=== PATIENT | male | born 1980 | race African-American/Black ===

== ENCOUNTER 2024-11-16 17:16 | Emergency (ER) | payer OTHER, SELFPAY ==
--- NOTE | ~2024-11-16 | XR_ITS ---
EXAMINATION: XR chest 2V Exam Date/Time: 11/16/2024 18:31 CDT HISTORY: rule out rib fx Comparison: None. RESULT: Lines, tubes, and devices: None. Lungs and pleura: Clear. Cardiomediastinal silhouette: Stable. Other: No acute osseous or upper abdominal finding. IMPRESSION: No acute cardiopulmonary process. No acute displaced rib fractures detected, however the inferior ribs are not routinely included in est radiographs. If clinical suspicion of rib injury is high or location is inferior, consider dedicated radiographs o f the ribs, preferably with indication of the specific site of concern. Reviewed, dictated and finalized at [facility] IMPRESSION: No acute cardiopulmonary process. No acute displaced rib fractures detected, however the inferior ribs are not ro utinely included in chest radiographs. If clinical suspicion of rib injury is high or location is inferior, consider d edicated radiographs of the ribs, preferably with indication of the specific si te of concern.
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
[2024-11-16 17:22] VITALS: BP 165/105; PULSE 79; RESP 18; TEMP 36.6; O2SAT 99
[2024-11-16 17:44] VITALS: BP 160/112; PULSE 80; RESP 20; O2SAT 94
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
--- OUTSIDE RECORDS SUMMARY | 2024-11-16 18:15 | XMS_ITS | Encounter Summary ---
Author Organization [facility] Healthcare Address [address] [place] [address] Care Team Providers Care Relationship Management Lead Name Role Phone Omari Marcos MD Primary Care Provider [phone] Pascual Montgomery MD Unavailable [phone] Encounter Details Date Type Department Care Team (Late st Contact Info) Description 03/11/2024 Orders Only [facility] [address] [place] [id number] Omari Marcos MD [facility] [address] [address] Social History Tobacco Use Types Packs/Day Years Used Date Smoking Tobacco: Never Smokeless Tobacco: Never Alcohol Use Standard Drinks/Week Comments Yes 0 [...] on file Legal 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 Gender Identity Not on file Sexual Orientation Not on file documented as of this encounter Plan of Treatment Not on file documented as of this encounter Procedures Procedure Name Priority Date/Time Associated Diagnosis Comments GI - RESULT 03/11/2024 documented in this encounter Results * GI - RESULT (03/11/2024) Anatomical Region Laterality Modality Other Omari Marcos MD Final Result documented in this encounter Visit Diagnoses Not on filedocumented in this encounter Care Teams Relationship Management Lead Relationship Specialty Start Date End Date Omari Marcos MD PCP - General Family Medicine 10/21/19 Pascual Montgomery MD [address] [address] 10/21/19 documented as of this encounter
--- OUTSIDE RECORDS SUMMARY | 2024-11-16 18:15 | XMS_ITS | Clinical Summary ---
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 Gender Identity Not on file Sexual Orientation Not on file Plan of Treatment Health Maintenance Due Date Last Done Comments Hepatitis C Virus (HCV) Screening 1978 TdaP Immunization 1978 Hepatitis B Immunization (1 of 3 - 19+ 3-dose series) 1997 Cologuard 2023 Colonoscopy 2023 Colorectal Cancer Screening 2023 Immunochemical Fecal Occult Blood 2023 SARS-COV-2 Immunization ( season) 2023 Influenza Immunization (#1) 2024 Respiratory Syncytial Virus (RSV) Immunization (Adult) (1 - 1-dose 75+ series) 2053 Human Papillomavirus (HPV) Immunization Aged Out No longer eligible b ased on patient's age to complete this topic Meningococcal Immunization (ACWY) Aged Out No longer eligible based on patient's age to complete this topic Pneumococcal Immunization Combined Aged Out No longer eligible based on patient's age to complete this topic Rotavirus Immunization Aged Out No lo nger eligible based on patient's age to complete this topic
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
--- OUTSIDE RECORDS SUMMARY | 2024-11-16 18:15 | XMS_ITS | Continuity of Care Document ---
Author Organization [facility] Address [address] [place] [address] Phone Care Team Providers Care Cable Ferryboat Operator Name Role Phone Jones Anaya MD, MD Unavailable Unavailable Procedures Procedure Date Medical Record Copy Medical Record Copy Per Page Affidavit Independent Medical Examination UZIEL Advance Directives Directive Yes / No Effective Date File Name No Information Encounters Encounter Description Practice Location Reason(s) For Visit Diagnoses Date Provider Providers Copied on Encounter [facility], [address], [id number], tel:[phone] [facility] No Information 2 Héctor Goldman. [address] [facility], [facility] [address], [place], [id number], [place]. tel:[phone] [facility], [address] [place] [address], [id number], [place] tel:[phone] [facility] No Information 2 Administrative Provider. [address] [place] [address], [address], [id number], [place]. tel:[phone] Independent Medical Examination UZIEL [facility], [address] [place] [address], [id number], tel:[phone] [facility] Carpal Tunnel Syndrome Dec 3-201 2 Camilo Ramirez. [address] [facility], [address], [place], [place], [id number], [place]. tel:[phone] Family History Family Member Type Diagnosis Age At Onset No Information Immunizations Vaccine Date Status Comments Flu (split) (3 yrs or older) administered Source: New Immunization Record Payers Payer name Insurance type Covered green party ID Authoriza tion(s) No Information Social History Type Description Quantity Date Captured Comments Sex Male Smoking Status No Information Chief Complaint And Reason For Visit No Information Reason For Referral Reason For Referral No Information History Of Present Illness Encounter Date Complaint History Of Prese nt Illness No Information Functional Status Date Functional Assessmen t No Information Instructions Date Instruction Additional Infor mation No Information Assessments Type Assessment Date No Information Patient Care Teams Name Effective Dates (start - stop) Status Members No Information
--- OUTSIDE RECORDS SUMMARY | 2024-11-16 18:15 | XMS_ITS | Referral Summary ---
Author Organization [facility] Address [address] [place] [address] Care Team Providers Care Baby Registry Sales Consultant Name Role Phone Omari Marcos MD Primary Care Provider [phone] Pascual Montgomery MD Unavailable [phone] Encounters Date Type Department Care Team Description 11/16/2024 Nurse Triage [facility] Family Medicine at [address] [place] [address] Omari Marcos MD from Last 3 Months Allergies No known active allergies Medications cyclobenzaprin [...] 06/18/2022 Injury of collateral ligament of wrist Nervous indigestion 06/18/2022 Pain of finger of [...] 05/30/2021 Assessment & Plan (05/30/2021 7:56 AM VICE PRESIDENT LENDING): Acute Likely self-limiting with that of prescription medication for anti-inflammatory and muscle relaxant. If problem persists would consider imaging or physical therapy. Left carpal tunnel syndrome 05/30/2021 Assessment & Plan (05/30/2021 7:58 AM VICE PRESIDENT LENDING): Lsie-zp-hyxzantd chronic carpal tunnel at left wrist. Previous [...] Condition: New Acute Problem Treatment: New Medication: [place]. 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 Increase omeprazole at prescription dosage [...] agreeable Assessment & Plan (05/30/2021 7:56 AM VICE PRESIDENT LENDING): Patient no longer uses CPAP. Patient uses some sort of a mouth device for treating sleep apnea, recommended by dentist. Immunizations Immunization Administration Dates Next Due DTP 07/26/1993,06/19/1993,02/07/1984 DTaP 5 Pertussis 10/25/2017 Influenza, Unspecified 03/04/2024(Deferr ed: Patient decision),01/31/2023,01/31/2022(Deferred: Patient Refused),01/19/2022(Deferred: Patient decision) MMR 07/26/1993,06/19/1993 OPV 08/01/1993,06/19/1993,02/07/1984 Td, Unspecified 04/21/2017 Social History Tobacco Use Types Packs/Day Years [...] on file Legal Sex Male 11:11 PM VICE PRESIDENT LENDING Gender Identity Not on file Sexual Orientation Not on file Last Filed Vital Signs Vital Sign Reading Time Taken Comments Blood Pressure 137/89 03/04/2024 8:55 AM VICE PRESIDENT LENDING Pulse 89 03/04/2024 8:55 AM VICE PRESIDENT LENDING Temperature 36.3 C (97.3 F) 03/04/2024 8:55 AM VICE PRESIDENT LENDING Respiratory Rate 18 03/04/2024 8:55 AM VICE PRESIDENT LENDING Oxygen Saturation 98% 03/04/2024 8:55 AM VICE PRESIDENT LENDING Inhaled Oxygen Concentration - - Weight 88.6 kg (195 lb 6.4 oz) 03/04/2024 8:55 A M VICE PRESIDENT LENDING Height 172.7 cm (5' 8) 03/04/2024 8:55 AM VICE PRESIDENT LENDING Body Mass Index 29.71 03/04/2024 8:55 AM VICE PRESIDENT LENDING Plan of Treatment Not on file Procedures Procedure Name Priority Date/Time Associated Diagnosis Comments PSA SCREEN Routine 05/22/2024 10:04 AM VICE PRESIDENT LENDING Screening for prostate cancer COLONOSCOPY Routine 03/11/2024 from Last 3 Months or Most Recently Relevant to Health Maintenance Results * PSA screen (05/22/2024 10:04 AM VICE PRESIDENT LENDING) PSA-Total 1.20 ng/mL Comment: Interpretive Data AGE [...] revised 19. Blood 05/22/2024 10:0 4 AM VICE PRESIDENT LENDING 05/22/2024 10:51 AM VICE PRESIDENT LENDING Omari Marcos MD LAB BLOOD ORDERABLES Final Resul t [facility] [address] [facility] [place] [address] * Colonoscopy (03/11/2024) Anatomical Region Laterality Modality Other Historical Provider ENDOSCOPY PROCEDURES Treva l Result from Last 3 Months or Most Recently Relevant to Health Maintenance Insurance Down OOS Down [facility] Address: [address] [place] [address] Care Teams Baby Registry Sales Consultant Relationship Specialty Start Date End Date Omari Marcos MD PCP - General Family Medicine 10/21/19 Pascual Montgomery MD [address] [facility] [address] [place] [address] 10/21/19
[2024-11-16 19:33] LABS: Hematocrit 37.3 % (42.0-52.0); Hemoglobin 12.8 g/dL (14.0-18.0); Immature Granulocyte Percent A 0.2 % (0-0.5); Lymphocytes Absolute Auto 2.63 K/mm3 (0.9-3.2); Mean Corpuscular HGB Conc 34.3 g/dl (32-36); Mean Corpuscular Hemoglobin 30.1 pg (26-34); Mean Corpuscular Volume 87.8 fl (80-100); Nucleated Red Blood Cells Absolute Auto 0.000 K/mm3 (0.0-0.012); Nucleated Red Blood Cells Perc 0.0 % (0.0-0.2); Platelet Count Result 282 k/mm3 (150-375); Red Blood Count 4.25 M/mm3 (4.6-6.20); White Blood Count 5.7 K/mm3 (4.5-10.0)
[2024-11-16 19:42] LABS: Alanine Aminotransferase 23 U/L (6-50); Albumin Level 4.4 g/dL (3.5-5.1); Alkaline Phosphatase 73 U/L (38-126); Anion Gap 9 mmol/L (4-12); Aspartate Amino Transferase 32 U/L (17-59); Bilirubin,Total 0.4 mg/dL (0.2-1.3); Blood Urea Nitrogen 13 mg/dL (9-20); Calcium 9.1 mg/dL (8.4-10.2); Carbon Dioxide 22 mmol/L (22-30); Chloride 108 mmol/L (98-107); Estimated CRCL calculation 76 ml/min; Estimated Glomerular Filt Rate > 60; Glucose 82 mg/dL (65-110); Potassium 3.7 mmol/L (3.4-5.0); Sodium 139 mmol/L (137-145); Total Protein 8.0 g/dL (6.3-8.2)
[2024-11-16 19:56] VITALS: BP 155/111; PULSE 73; RESP 16; O2SAT 98
[2024-11-16 20:28] LABS: Add Urine Microscopic? YES; Appearance Urine Clear (Clear); Glucose Urine UA Negative (Negative); Leukocyte Esterase Ur Negative LEU/UL (Negative); Nitrate Urine Negative (Negative); Non Pathogenic Casts 0-2; Specific Grav Ur 1.025 (1.001-1.035)
[2024-11-16 20:34] LABS: Lipase 57 U/L (23-300)
[2024-11-16] MEDS: KETOROLAC 15 MG/ML VIAL (*BKC) IV PUSH (20:59)
[2024-11-16 21:21] LABS: Total Protein Urine Random 14 mg/dL
[2024-11-16 21:27] VITALS: BP 144/99; PULSE 81; RESP 16; TEMP 36.9; O2SAT 98
[2024-11-16 21:45] LABS: Immunoglobulin A 190 mg/dL (70-400); Immunoglobulin G 1652 mg/dL (700-1600); Immunoglobulin M 99 mg/dL (40-230)
[2024-11-16 22:08] LABS: Prostate Specific Antigen 1.0 ng/mL (< OR = 4.0)
[2024-11-18 15:09] LABS: Albumin 4.1 g/dL (2.9-4.4); Alpha-1-Globulin 0.1 g/dL (0.0-0.4); Alpha-2-Globulin 0.4 g/dL (0.4-1.0); Gamma Globulin 1.5 g/dL (0.4-1.8)
== END 2024-11-16 21:42 | disposition home or self-care (01) ==
PROVIDERS: Emergency Provider Registered Nurse
DX: S06.0X0A Concussion without loss of consciousness, initial encounter (principal); S13.4XXA Sprain of ligaments of cervical spine, initial encounter; S29.012A Strain of muscle and tendon of back wall of thorax, initial encounter; S39.012A Strain of muscle, fascia and tendon of lower back, initial encounter; R93.89 Abnormal findings on diagnostic imaging of other specified body structures; V43.52XA Car driver injured in collision with other type car in traffic accident, initial encounter
CPT/HCPCS: 36415; 70450; 71046; 72125; 72128; 72131; 80053; 81001; 81050; 82784; 83690; 84153; 84155; 84156; 84165; 85025; 85652; 96374; 99284; J1885